=== PATIENT | female | born 1960 | race Caucasian/White ===

== ENCOUNTER 2023-07-06 08:16 | Day surgery (SDC) | payer MEDICARE, OTHER, SELFPAY ==
[2023-07-06] VITALS (13 sets, daily range): BP systolic 98–139; BP diastolic 53–81; BMI 34.0
[2023-07-06 09:03] LABS: Glucose - Point of Care 169 mg/dl (70-99)
[2023-07-06] MEDS: NSS 278 ML IV (09:11)
--- NOTE | 2023-07-06 10:49 | ITS.CL.CATH ---
[facility] - Catheterization
Cardiac Catheterization
Procedure Report:
CARDIAC CATHETERIZATION REPORT
Date of Procedure: 07/06/2023
Referring: Edgar Peraza MD
Indication: Worsening exertional dyspnea
HEMODYNAMIC DATA
AO: 137/80
LV: 137/20
PCWP: 16
PA: 37/15
RV: 37/14
RA: 11
Oximetry: Ao 91%, PA 75%, cardiac output 7.0, cardiac index 3.6
LEFT VENTRICULOGRAPHY: Normal wall motion with EF 62%
CORONARY ANGIOGRAPHY
Dominance: Left
Left Main: Normal
LAD: Normal
Circumflex: Normal dominant vessel
RCA: Normal nondominant vessel
Closure Device: None-procedure was performed via the right radial artery. The Dimitri's test was normal prior to the procedure.
Radiation dose (mGy): 207
DAP (cm2.Gy): 19.1
Fluoroscopy time: 4.3-minute
CONCLUSIONS:
1. Mildly elevated left heart filling pressures with top normal right heart filling pressures and borderline pulmonary hypertension
2. Normal left ventricular function with EF 62%
3. Normal coronary arteries
Copy to: Edgar Peraza MD, Nilda Hernandez DO
Errol Churchill MD, [facility], [facility]
[2023-07-06 11:50] LABS: Glucose - Point of Care 167 mg/dl (70-99)
[2023-07-06] MEDS: NSS 1000 IV (14:05)
== END 2023-07-06 14:33 | disposition home or self-care (01) ==
LOC: CATH 08:16
PROVIDERS: ATTENDING PHYSICIAN Internal Medicine Cardiovascular Disease
DX: I27.20 Pulmonary hypertension, unspecified (principal); R06.09 Other forms of dyspnea; E11.9 Type 2 diabetes mellitus without complications; Z79.82 Long term (current) use of aspirin
CPT/HCPCS: 82962; 93460; C1894; Q9967